=== PATIENT | male | born 1980 | race Caucasian/White ===

== ENCOUNTER 2020-03-14 10:00 | Observation (INO) | payer MEDICAID ==
[~2020-03-14] VITALS: Ht 170.2 cm; Wt 136.4 kg
[2020-03-14] MEDS ORDERED: LIPITOR10 MG PO (10:18)
[2020-03-14] MEDS ORDERED: GLUCOPHAGE500 MG PO (10:19)
[2020-03-14 10:30] VITALS: BP 191/100
[2020-03-14 10:45] LABS: CALC OSMOLALITY 280 mosm/kg (275-300); CALCIUM 8.7 mg/dL (8.5-10.1); CARBON DIOXIDE 28.2 mmol/L (21.0-32.0); CHLORIDE - SERUM 102 mmol/L (98-107); CREATININE - SERUM 0.8 mg/dL (0.6-1.3); GLUCOSE 132 mg/dL (74-106); POTASSIUM - SERUM 3.9 mmol/L (3.5-5.1); SODIUM 139 mmol/L (136-145); UREA NITROGEN 14 mg/dL (7-18); eGFR NON AFRICAN AMERICAN > 90 mL/min (90-120)
[2020-03-14 10:52] LABS: INR 1.01 (0.85-1.17); PROTIME 13.2 SECONDS (11.6-15.0)
[2020-03-14 10:53] LABS: APTT 29.5 SECONDS (22.8-39.4)
[2020-03-14 11:01] LABS: ALBUMIN 3.4 g/dL (3.4-5.0); ALKALINE PHOSPHATASE 72 U/L (30-120); ALT (SGPT) 38 U/L (10-68); BILIRUBIN - TOTAL 0.69 mg/dL (0.2-1.3); CKMB 1.6 U/L (0.0-3.6); CREATINE KINASE 173 UL (21-232); MAGNESIUM - SERUM 2.1 mg/dL (1.8-2.4); PROTEIN - SERUM 7.2 g/dL (6.4-8.2); TROPONIN-I < 0.017 ng/mL (0.000-0.060)
[2020-03-14 11:22] LABS: BASOPHILS 0.3 % (0-2); EOSINOPHILS 2.2 % (0-7); HEMOGLOBIN 14.3 g/dL (13.5-17.5); IMMATURE GRANULOCYTES 0.4 % (0-5); MCH 28.8 pg (26.0-34.0); MCHC 31.8 g/dL (31.0-37.0); MCV 90.5 fL (80.0-100.0); MONOCYTES 10.5 % (2-11); NEUTROPHILS 57.6 % (40-80); PLATELET COUNT 264 10x3/uL (130-400); RBC 4.97 10x6/uL (4.20-6.10); RDW 13.5 % (11.5-14.5); WBC 13.1 10x3/uL (4.8-10.8)
--- NOTE | 2020-03-14 12:36 | NUR ---
TRANSFER FROM ER BY W/C. MOISESINTED TO ROOM. CALL LIGHT IN REACH. WILL CONT. PLAN OF CARE.
[2020-03-14 12:59] VITALS: BP 147/75; BMI 47.1
[2020-03-14 14:34] VITALS: BP 150/87
[2020-03-14 16:31] VITALS: Ht 170.2 cm; Wt 136.4 kg
[2020-03-14 17:10] LABS: CKMB 1.1 U/L (0.0-3.6); CREATINE KINASE 150 UL (21-232); TROPONIN-I < 0.017 ng/mL (0.000-0.060)
[2020-03-14 19:23] VITALS: BP 161/78
--- NOTE | 2020-03-14 19:40 | NUR ---
RECEIVED BEDSIDE REPORT. PATIENT IS ALERT AND ORIENTED, RESTING COMFORTABLY IN BED. RESPIRATIONS ARE EVEN AND UNLABORED. NO S/S OF DISTRESS. NO C/O PAIN. NEEDS MET. CALL LIGHT WITHIN REACH. WILL CPOC.
[2020-03-14 20:00] VITALS: BP 163/88
[2020-03-14 20:20] LABS: BASOPHILS 0.3 % (0-2); EOSINOPHILS 2.4 % (0-7); HEMATOCRIT 44.3 % (42.0-54.0); HEMOGLOBIN 14.2 g/dL (13.5-17.5); IMMATURE GRANULOCYTES 0.4 % (0-5); LYMPHOCYTES 29.8 % (15-50); MCHC 32.1 g/dL (31.0-37.0); MCV 90.4 fL (80.0-100.0); MEAN PLATELET VOLUME 11.2 fL (7.4-10.4); MONOCYTES 10.2 % (2-11); NEUTROPHILS 56.9 % (40-80); PLATELET COUNT 271 10x3/uL (130-400); RDW 13.7 % (11.5-14.5); WBC 13.2 10x3/uL (4.8-10.8)
[2020-03-14 20:25] LABS: ALT (SGPT) 39 U/L (10-68); CALC OSMOLALITY 280 mosm/kg (275-300); CALCIUM 8.5 mg/dL (8.5-10.1); CHLORIDE - SERUM 103 mmol/L (98-107); CHOL - HDL RATIO 6.4 ratio (2.3-4.9); CHOLESTEROL, TOTAL 191 mg/dL (0-200); CREATININE - SERUM 0.9 mg/dL (0.6-1.3); GLUCOSE 117 mg/dL (74-106); HDL CHOLESTEROL 30 mg/dL (32-96); LDL CHOLESTEROL 136 mg/dL (0-100); LDL-HDL RATIO 4.5 ratio (1.5-3.5); SODIUM 140 mmol/L (136-145); TRIGLYCERIDE 125 mg/dL (30-200); UREA NITROGEN 15 mg/dL (7-18); eGFR NON AFRICAN AMERICAN > 90 mL/min (90-120)
[2020-03-14 20:34] LABS: POTASSIUM - SERUM 4.5 mmol/L (3.5-5.1)
[2020-03-14 22:59] LABS: CREATINE KINASE 138 UL (21-232)
[2020-03-14 23:08] LABS: TROPONIN-I < 0.017 ng/mL (0.000-0.060)
[2020-03-15] VITALS: BP 155/96
--- NOTE | 2020-03-15 04:11 | NUR ---
PATIENT REFUSED AM LABS.
--- NOTE | 2020-03-15 04:14 | NUR ---
PATIENT IS REFUSING TO SIGN CONSENTS FOR HEART CATH THAT IS SCHEDULED FOR THIS AM. PATIENT STATES "HE DOES NOT WANT THE PROCEDURE."
--- NOTE | 2020-03-15 04:50 | NUR ---
PATIENT LEAVING AMA. PATIENT WAS EDUCATED BY TO THE RISKS OF HIM LEAVING AMA. NOTIFIED TASHIA ANSARI APN. WHOM STRONGLY ADVISES AGAINST PATIENT LEAVING. SECOND NURSE, YOSEPH SOLIS ATTEMPTED TO EDUCATE PATIENT TO THE RISKS OF HIM LEAVING. PATIENT CONTINUES TO WANT TO LEAVE. THIS RN CALLED POLYMERIZATION HELPER WHOM CAME TO FLOOR AND EXPLAINED THE HEALTH RISKS OF PATIENT LEAVING. PATIENT INFORMED THIS RN AND POLYMERIZATION HELPER HE WAS LEAVING AND SIGNED AMA PAPERWORK. PATIENT IV REMOVED, CATHETER INTACT. TELEMETRY BOX RETURNED TO DERRICK BARGE OPERATOR.
== END 2020-03-15 06:09 | disposition left against medical advice (07) ==
LOC: D.ER 10:00 → D.M2 11:08 → OBSVTIME 15:00 → D.M2 03-15 06:09
PROVIDERS: Family Medicine; Internal Medicine Interventional Cardiology; ADMIT Internal Medicine Nephrology; ATTEND Internal Medicine Nephrology
DX: R07.9 Chest pain, unspecified (principal); I10 Essential (primary) hypertension; E78.5 Hyperlipidemia, unspecified; E11.9 Type 2 diabetes mellitus without complications; E66.01 Morbid (severe) obesity due to excess calories; Z68.42 Body mass index [BMI] 45.0-49.9, adult; F17.200 Nicotine dependence, unspecified, uncomplicated